=== PATIENT | male | born 1980 | race American Indian/Alaskan Native ===

== ENCOUNTER 2020-06-22 13:00 | Emergency (ER) | payer SELFPAY ==
[2020-06-22 13:12] VITALS: BP 108/64
[2020-06-22 13:44] LABS: Basophils # (Auto) 0.1 K/mm3 (0.0-0.1); Basophils % (Auto) 0.5 % (0.0-1.8); Eosinophils # (Auto) 0.1 K/mm3 (0.0-0.4); Eosinophils % (Auto) 0.8 % (0.0-4.3); Hematocrit 45.6 % (35.5-45.6); Hemoglobin 16.1 gm/dl (11.8-15.2); Lymphocytes # (Auto) 1.8 K/mm3 (1.2-5.4); Lymphocytes % (Auto) 15.5 % (13.4-35.0); Mean Corpuscular HGB Conc 35 % (32-34); Mean Corpuscular Volume 89 fl (84-94); Monocytes # (Auto) 0.9 K/mm3 (0.0-0.8); Monocytes % (Auto) 7.5 % (0.0-7.3); Platelet Count 253 K/mm3 (140-440); Red Blood Count 5.14 M/mm3 (3.65-5.03); Red Cell Distribution Width 12.5 % (13.2-15.2)
--- NOTE | 2020-06-22 13:44 | XRay Report ---
XR chest 1V ap INDICATION / CLINICAL INFORMATION: SOB COMPARISON: None available. FINDINGS: SUPPORT DEVICES: None. HEART / MEDIASTINUM: No significant abnormality. LUNGS / PLEURA: Lungs are clear. Costophrenic sulci are sharp. No pneumothorax. ADDITIONAL FINDINGS: No significant additional findings. IMPRESSION: 1. No acute findings. Signer Name: Mitul Marrero MD Signed: 06/22/2020 1:40 PM Workstation Name: [id number]
[2020-06-22] MEDS ORDERED: SODIUM CHLORIDE 0.9% 1000 ML 1,000 ML IV ONE ×2 (13:56→14:36)
[2020-06-22 14:00] LABS: INR 0.92 (0.87-1.13)
[2020-06-22 14:08] LABS: Alanine Aminotransferase 492 units/L (7-56); Albumin 3.8 g/dL (3.9-5); BUN/Creatinine Ratio 9; Blood Urea Nitrogen 7 mg/dL (9-20); Calcium 9.3 mg/dL (8.4-10.2); Hemolysis Index 3
[2020-06-22] MEDS ORDERED: INSULIN REGULAR, HUMAN 100 UNITS/1 ML ONE (14:33)
[2020-06-22] MEDS ORDERED: guaiFENesin/CODEINE 100-10MG ORAL LIQD 5 ML PO ONE (14:36)
[2020-06-22] MEDS ORDERED: IPRATROPIUM/ALBUTEROL SULFATE 3 ML AMPUL.NEB IH ONE (14:36)
[2020-06-22 14:49] LABS: Bilirubin,Urine NEG (Negative); Blood,Urine NEG (Negative); Color,Urine Straw (Yellow); Mucus,Urine FEW /HPF; Protein,Urine <15 mg/dL mg/dL (Negative); Urobilinogen,Urine < 2.0 mg/dL (<2.0); WBC,Urine < 1.0 /HPF (0.0-6.0)
--- NOTE | 2020-06-22 14:54 | Emergency Department Report ---
HPI - General Chief Complaint: Hyperglycemia Time Seen by Provider: 06/22/20 13:07 - HPI HPI: This is a 40-year-old male presents to the emergency department via EMS from home with complaint of a one-week history of feeling ill that he believes is secondary to hyperglycemia. Patient says that he has some intermittent shortness of breath, a mixed dry and productive cough, and feels rundown/fatigue. He does not have an Accu-Chek at home and says that he just knows when he has elevated blood sugar. The patient is on NovoLog and Lantus. NovoLog he takes 10 to 15 units with meals and Lantus is "variable." He denies any fever, chest pain, nausea vomiting, diarrhea, abdominal pain. He just began having some polyuria and polydipsia in the past 1 to 2 days. No recent travel or sick contacts at home. No known exposure to anyone with Covid 19. The patient does not currently have a primary care physician secondary to lack of insurance. ED Past Medical Hx - Past Medical History Hx Diabetes: Yes Additional medical history: chronic bronchitis - Surgical History Past Surgical History?: No - Social History Smoking Status: Current Every Day Smoker - Medications Home Medications: Home Medications Medication Instructions Recorded Confirmed Last Taken Type Albuterol Mdi (or & Nicu Only) 2 puff IH QID PRN #8.5 gram 06/22/20 Unknown Rx [ProAir HFA Inhaler] Benzonatate [Tessalon Perles] 100 mg PO Q8HR PRN #20 capsule 06/22/20 Unknown Rx ED Review of Systems ROS: Stated complaint: HYPERGLYCEMIA Other details as noted in HPI Comment: All other systems reviewed and negative Constitutional: other (Fatigue). denies: fever Eyes: denies: eye pain, vision change ENT: denies: ear pain, throat pain Respiratory: cough, shortness of breath Cardiovascular: denies: chest pain, palpitations Endocrine: increased thirst, increased urine Gastrointestinal: denies: abdominal pain, vomiting Genitourinary: denies: dysuria, discharge Musculoskeletal: denies: back pain, arthralgia Skin: denies: rash, lesions Neurological: denies: headache, weakness Physical Exam - Physical Exam Vital Signs: Vital Signs 06/22/20 13:05 Temperature 98.2 F Pulse Rate 93 H Respiratory 22 Rate Blood Pressure 108/64 O2 Sat by Pulse 97 Oximetry Physical Exam: GENERAL: The patient is well-developed well-nourished. HENT: Normocephalic. Atraumatic. Patient has moist mucous membranes. EYES: Extraocular motions are intact. NECK: Supple. Trachea is midline. CHEST/LUNGS: Clear to auscultation. A productive cough heard during examination. No tachypnea or accessory muscle use. There is no respiratory distress noted. HEART/CARDIOVASCULAR: Regular. There is no tachycardia. There is no murmur. ABDOMEN: Abdomen is soft, nontender. Patient has normal bowel sounds. There is no abdominal distention. SKIN: Skin is warm and dry. NEURO: The patient is awake, alert, and oriented. The patient is cooperative. The patient has no focal neurologic deficits. Normal speech. MUSCULOSKELETAL: There is no tenderness or deformity. There is no limitation range of motion. ED Course Vital Signs 06/22/20 13:05 Temperature 98.2 F Pulse Rate 93 H Respiratory 22 Rate Blood Pressure 108/64 O2 Sat by Pulse 97 Oximetry ED Medical Decision Making - Lab Data Result diagrams: 06/22/20 13:29 06/22/20 13:29 - EKG Data -: EKG Interpreted by Me EKG shows normal: sinus rhythm, axis, intervals, QRS complexes, ST-T waves Rate: normal - EKG Data When compared to previous EKG there are: previous EKG unavailable Interpretation: normal EKG - Radiology Data Radiology results: report reviewed, image reviewed interpreted by me: Chest x-ray does not show any acute process. There are no pleural effusions, obvious pneumonia and there is no pneumothorax. No significant cardiomegaly. ULTRASOUND ABDOMEN, LIMITED (RIGHT UPPER QUADRANT) INDICATION / CLINICAL INFORMATION: elevated LFTs. COMPARISON: None available. FINDINGS: PANCREAS: Visualized portion shows no significant abnormality. LIVER: The liver measures 16.2 cm in length and demonstrates slightly increased echogenicity. GALLBLADDER: No significant abnormality. BILE DUCTS: No significant abnormality. Common bile duct measures 4 mm. RIGHT KIDNEY: The right kidney measures 11.3 cm in length and is normal in echogenicity. There is normal renal cortical thickness of 1.6 cm. FREE FLUID: None. ADDITIONAL FINDINGS: None. IMPRESSION: Slightly increased hepatic echotexture compatible with steatosis. - Medical Decision Making This patient presents to the emergency department with complaint of a generalized illness or feeling unwell over the past week. It is also associated with some shortness of breath. The patient equates all of this to hyperglycemia. The patient does have hyperglycemia with a serum blood sugar of about 730. However there is no venous acidosis or significantly elevated anion gap. Patient also has pseudohyponatremia secondary to the hyperglycemia. The labs also show elevated LFTs. He had a right upper quadrant ultrasound that shows hepatic steatosis. Chest x-ray did not show any acute process including any pneumonia, pleural effusions or pneumothorax. The patient was given 2 L of IV fluid and a dose of IV insulin and his blood sugar came down to about 290 on Accu-Chek. His vital signs have been reassuring throughout his ED course. For these reasons the patient appears safe for discharge home. He has been given outpatient referral for primary care clinics and physicians. He says he has enough insulin. He will return to the emergency department with any worsening of his symptoms or with any acute distress. Critical Care Time: No Critical care attestation.: If time is entered above; I have spent that time in minutes in the direct care of this critically ill patient, excluding procedure time. ED Disposition Clinical Impression: Hyperglycemia due to type 1 diabetes mellitus, Bronchitis, Elevated liver enzymes, Hepatic steatosis Uncontrolled diabetes mellitus Qualifiers: Diabetes mellitus type: type 1 Glycemic state: with hyperglycemia Qualified Code(s): E10.65 - Type 1 diabetes mellitus with hyperglycemia Disposition: DC-01 TO HOME OR SELFCARE Is pt being admited?: No Condition: Stable Instructions: Acute Bronchitis (ED), Non-Alcoholic Fatty Liver Disease (ED), Diabetic Hyperglycemia (ED) Additional Instructions: Please follow-up with a primary care physician in the next few days. I am giving you a referral for a local primary care physician in clinic. Take your diabetes medications, insulin, as prescribed. Try to stay away from foods that are high in sugar, carbohydrates and starches. Keep a blood sugar log. Return to the emergency department with any worsening of your symptoms or with any acute distress. I am giving you a referral for [facility] to follow-up regarding the elevated liver enzymes. Prescriptions: Albuterol Mdi (or & Nicu Only) [ProAir HFA Inhaler] 2 puff IH QID PRN #8.5 gram PRN Reason: Shortness Of Breath Benzonatate [Tessalon Perles] 100 mg PO Q8HR PRN #20 capsule PRN Reason: Cough Referrals: PRIMARY CAREMD [Primary Care Provider] - 3-5 Days DELISA VILLASEÑOR MD [Staff Physician] - 3-5 Days [facility] [Provider Group] - 3-5 Days [facility] [Provider Group] - 3-5 Days Time of Disposition: 16:02
[2020-06-22] MEDS ORDERED: INSULIN REGULAR, HUMAN 100 UNIT/ML 3ML VIAL IV SCH (15:00)
--- NOTE | 2020-06-22 15:21 | Ultrasound Report ---
ULTRASOUND ABDOMEN, LIMITED (RIGHT UPPER QUADRANT) INDICATION / CLINICAL INFORMATION: elevated LFTs. COMPARISON: None available. FINDINGS: PANCREAS: Visualized portion shows no significant abnormality. LIVER: The liver measures 16.2 cm in length and demonstrates slightly increased echogenicity. GALLBLADDER: No significant abnormality. BILE DUCTS: No significant abnormality. Common bile duct measures 4 mm. RIGHT KIDNEY: The right kidney measures 11.3 cm in length and is normal in echogenicity. There is nor mal renal cortical thickness of 1.6 cm. FREE FLUID: None. ADDITIONAL FINDINGS: None. IMPRESSION: Slightly increased hepatic echotexture compatible with steatosis. Signer Name: Carlos Parada MD Signed: 06/22/2020 3:17 PM Workstation Name: [id number]
== END 2020-06-22 17:06 | disposition home or self-care (01) ==
LOC: ED 13:00
DX: E10.65 Type 1 diabetes mellitus with hyperglycemia (principal); R74.8 Abnormal levels of other serum enzymes; J40 Bronchitis, not specified as acute or chronic; K76.0 Fatty (change of) liver, not elsewhere classified; F17.200 Nicotine dependence, unspecified, uncomplicated; Z79.899 Other long term (current) drug therapy
CPT/HCPCS: 36415; 71045; 76705; 80053; 81001; 82010; 82805; 82962; 83880; 85025; 85610; 93005; 94640; 96361; 96374; 99285; J7030; 94644; J1815

== ENCOUNTER 2020-07-24 20:28 | Emergency (ER) | payer SELFPAY ==
[2020-07-24 21:21] VITALS: BP 113/83
== END 2020-07-24 23:17 | disposition left against medical advice (07) ==
LOC: ED 20:28
DX: Z53.21 Procedure and treatment not carried out due to patient leaving prior to being seen by health care provider (principal)

== ENCOUNTER 2021-10-31 13:51 | Emergency (ER) | payer SELFPAY | END 2021-10-31 14:00 | disposition left against medical advice (07) | LOC: ED 13:51 | DX: R19.7 Diarrhea, unspecified (principal); Z53.21 Procedure and treatment not carried out due to patient leaving prior to being seen by health care provider ==

== ENCOUNTER 2021-10-31 14:27 | Emergency (ER) | payer SELFPAY ==
--- NOTE | 2021-10-31 16:36 | Emergency Department Report ---
ED General Adult HPI - General Chief complaint: Nausea/Vomiting/Diarrhea Stated complaint: DIARRHEA Time Seen by Provider: 10/31/21 16:18 Source: patient Mode of arrival: Ambulatory Limitations: No Limitations - History of Present Illness Initial comments: Patient is 41 years old male with history of diabetes, noncompliant with his medication. Patient presented to the ER complaining of watery diarrhea on and off for the last month is getting worse since yesterday. Patient denies any abdominal pain, nausea or vomiting. He describes his diarrhea as watery with no blood or mucus. - Related Data Previous Rx's Medication Instructions Recorded Last Taken Type Albuterol Mdi (or & Nicu Only) 2 puff IH QID PRN #8.5 gram 06/22/20 Unknown Rx [ProAir HFA Inhaler] Benzonatate [Tessalon Perles] 100 mg PO Q8HR PRN #20 capsule 06/22/20 Unknown Rx Allergies Allergy/AdvReac Type Severity Reaction Status Date / Time No Known Allergies Allergy Unverified 06/22/20 13:24 ED Review of Systems ROS: Stated complaint: DIARRHEA Other details as noted in HPI Comment: All other systems reviewed and negative Constitutional: denies: chills, fever Respiratory: denies: cough, shortness of breath Cardiovascular: denies: chest pain, palpitations Gastrointestinal: diarrhea. denies: abdominal pain, nausea, vomiting Musculoskeletal: denies: back pain Neurological: denies: headache, weakness, numbness, paresthesias, confusion ED Past Medical Hx - Past Medical History Previous Medical History?: Yes Hx Diabetes: Yes Additional medical history: chronic bronchitis, Neuropathy - Surgical History Past Surgical History?: No - Social History Smoking Status: Never Smoker Substance Use Type: None - Medications Home Medications: Home Medications Medication Instructions Recorded Confirmed Last Taken Type Albuterol Mdi (or & Nicu Only) 2 puff IH QID PRN #8.5 gram 06/22/20 Unknown Rx [ProAir HFA Inhaler] Benzonatate [Tessalon Perles] 100 mg PO Q8HR PRN #20 capsule 06/22/20 Unknown Rx ED Physical Exam - General Limitations: No Limitations General appearance: alert, in no apparent distress - Head Head exam: Present: atraumatic, normocephalic, normal inspection - Eye Eye exam: Present: normal appearance - ENT ENT exam: Present: normal exam, normal orophraynx, mucous membranes moist - Neck Neck exam: Present: normal inspection, full ROM. Absent: tenderness, meningismus - Respiratory Respiratory exam: Present: normal lung sounds bilaterally - Cardiovascular Cardiovascular Exam: Present: regular rate, normal rhythm, normal heart sounds - GI/Abdominal GI/Abdominal exam: Present: soft, normal bowel sounds. Absent: distended, tenderness, guarding, rebound, rigid, organomegaly, mass, bruit, pulsatile mass, hernia - Extremities Exam Extremities exam: Present: normal inspection, full ROM, normal capillary refill. Absent: tenderness - Neurological Exam Neurological exam: Present: alert, oriented X3, CN II-XII intact, normal gait. Absent: motor sensory deficit - Psychiatric Psychiatric exam: Present: normal mood - Skin Skin exam: Present: warm, intact, normal color ED Course Vital Signs 10/31/21 15:57 Temperature 97.9 F Pulse Rate 74 Respiratory 20 Rate Blood Pressure 130/84 O2 Sat by Pulse 99 Oximetry ED Medical Decision Making - Lab Data Result diagrams: 10/31/21 16:39 10/31/21 16:39 - Medical Decision Making Patient is 41 years old male with history of diabetes, noncompliant with his medication. Patient presented to the ER complaining of watery diarrhea on and off for the last month is getting worse since yesterday. Patient denies any abdominal pain, nausea or vomiting. He describes his diarrhea as watery with no blood or mucus. Labs reviewed and is unremarkable except for slightly elevated liver enzyme. Patient diarrhea is most likely infectious given the clinical presentation. Patient given prescription for Flagyl and advised to follow-up with his primary doctor for the next 2 to 3 days and to return to the ER if he develop any new symptoms. Critical care attestation.: If time is entered above; I have spent that time in minutes in the direct care of this critically ill patient, excluding procedure time. ED Disposition Clinical Impression: Infectious diarrhea in adult patient Disposition: HOME / SELF CARE / HOMELESS Is pt being admited?: No Condition: Stable Instructions: Diarrhea, Adult, [id number] Referrals: [facility] [Provider Group] - 3-5 Days
[2021-10-31 16:54] LABS: Basophils % (Auto) 0.7 % (0.0-1.8); Eosinophils # (Auto) 0.2 K/mm3 (0.0-0.4); Eosinophils % (Auto) 3.1 % (0.0-4.3); Hemoglobin 15.4 gm/dl (11.8-15.2); Lymphocytes # (Auto) 2.1 K/mm3 (1.2-5.4); Lymphocytes % (Auto) 33.6 % (13.4-35.0); Mean Corpuscular HGB Conc 34 % (32-34); Mean Corpuscular Volume 88 fl (84-94); Monocytes # (Auto) 0.6 K/mm3 (0.0-0.8); Monocytes % (Auto) 9.3 % (0.0-7.3); Platelet Count 256 K/mm3 (140-440); Red Blood Count 5.12 M/mm3 (3.65-5.03); Red Cell Distribution Width 13.2 % (13.2-15.2)
[2021-10-31 17:11] LABS: Alanine Aminotransferase 257 units/L (7-56); Albumin 4.2 g/dL (3.9-5); Blood Urea Nitrogen 7 mg/dL (9-20); Calcium 9.3 mg/dL (8.4-10.2); Hemolysis Index 8
[2021-10-31 17:13] LABS: BUN/Creatinine Ratio 12
[2021-10-31] MEDS ORDERED: POTASSIUM CHLORIDE ER 20 MEQ TAB PO ONE (17:15)
[2021-10-31 18:06] VITALS: BP 131/86
== END 2021-10-31 18:06 | disposition home or self-care (01) ==
LOC: ED 14:27
DX: A09 Infectious gastroenteritis and colitis, unspecified (principal); E11.9 Type 2 diabetes mellitus without complications; G62.9 Polyneuropathy, unspecified; J40 Bronchitis, not specified as acute or chronic; Z79.899 Other long term (current) drug therapy
CPT/HCPCS: 36415; 80053; 85025; 99283